=== PATIENT | male | born 1950 | race Caucasian/White ===

== ENCOUNTER 2020-02-13 13:10 | Emergency (ER) | payer MEDICARE, BC ==
--- NOTE | 2020-02-13 13:40 | ED Physician Documentation ---
PD HPI LOWER EXT INJURY - Stated complaint Stated Complaint: L KNEE INJ - Chief complaint Chief Complaint: Trauma Ext - History obtained from History obtained from: Patient - History of Present Illness PD HPI LOW EXT INJURY LOCATION: Left, Knee Type of injury: Fall, Twist Where injury occurred: Home Timing - onset: How many hours ago (16) Timing - details: Abrupt onset Improved by: Rest, Ice Worsened by: Moving, Palpating Associated symptoms: Swelling. No: Weakness, Numbness, Tingling Similar symptoms before: Has not had sx before - Additional information Additional information: 69-year-old male here with left knee pain after stepping in between the spacing of decking and twisting the knee last night. He denies any previous history of injury to this knee but has been unable to bear weight. He does have a mild palpable effusion on the lateral side of the knee. no syncope or LOC. denies pertinent pmh outside of nephrolithiasis Review of Systems Constitutional: reports: Reviewed and negative Eyes: reports: Reviewed and negative Ears: reports: Reviewed and negative Throat: reports: Reviewed and negative Cardiac: reports: Reviewed and negative Skin: reports: Reviewed and negative Musculoskeletal: reports: Joint pain, Joint swelling Neurologic: reports: Reviewed and negative Psychiatric: reports: Reviewed and negative PD PAST MEDICAL HISTORY - Past Medical History Past Medical History: No - Past Surgical History Past Surgical History: No - Allergies Allergies/Adverse Reactions: Allergies Allergy/AdvReac Type Severity Reaction Status Date / Time No Known Drug Allergies Allergy Verified 02/13/20 13:33 - Social History Does the pt smoke?: No Smoking Status: Never smoker Does the pt drink ETOH?: Yes Does the pt have substance abuse?: No - Immunizations Immunizations are current?: Yes - POLST Patient has POLST: No PD ED PE NORMAL - General General: Alert and oriented X 3, No acute distress, Well developed/nourished - HEENT HEENT: Atraumatic - Extremities Extremities: No deformity. No: No tenderness to palpate (mild effusion left lateral knee. No laxity or varus or valgus stress testing. normla flexion/extension. no tenderness at tibial plateau ) Results - Vitals Vitals: Vital Signs - 24 hr 02/13/20 02/13/20 13:29 14:34 Temperature 37.1 C 36.9 C Heart Rate 103 H 82 Respiratory 16 18 Rate Blood Pressure 178/97 H 169/95 H O2 Saturation 95 96 Oxygen O2 Source Room air - Rads (name of study) left knee Radiology: Final report received (no acute fracture dislocation. ) PD MEDICAL DECISION MAKING - ED course Complexity details: reviewed results, re-evaluated patient, considered differential, d/w patient ED course: 69-year-old male presents the emergency department with acute left knee pain when he stepped into deck spacing twisting the knee. He reports a click medially when he extends the knee but has been unable to bear weight. X-ray does not show any obvious fracture. I suspect at this time he likely has internal derangement. Patient will be given an Will wrap and crutches. He is visiting from out of town and he will follow-up with his primary care doctor or orthopedist when he returns home. Departure - Departure Disposition: 01 Home, Self Care Clinical Impression: Left knee sprain Qualifiers: Encounter type: initial encounter Involved ligament of knee: unspecified ligament Qualified Code(s): S83.92XA - Sprain of unspecified site of left knee, initial encounter Condition: Stable Record reviewed to determine appropriate education?: Yes Instructions: ED Sprain Knee Comments: The x-ray of your knee does not show any obvious fracture. As we discussed this most likely is internal derangement or sprain of the ligaments or meniscus. Continue to wear the Will wrap when out of bed. I do recommend that you ice the knee for 10 minutes 2-3 times a day. If your pain and ability to bear weight is not consistently better in 7 to 10 days the knee should be re-x-rayed. You may prefer to follow-up with your primary or orthopedic doctor when you return home.
--- NOTE | 2020-02-13 14:10 | XRAY Report ---
PROCEDURE: Knee 4 View LT INDICATIONS: fall/twist. r/o tibial plateau fx TECHNIQUE: 4 views of the left knee(s) were acquired. COMPARISON: None. FINDINGS: Bones: No fractures or dislocations. No suspicious bony lesions. Prominent patellar spur is noted. Soft tissues: Mild joint effusion. No suspicious soft tissue calcifications. IMPRESSION: Mild effusion. No visualized acute fracture or dislocation. However, occult injury canno t be excluded. Recommend short interval imaging follow-up in 7-10 days as clinically indicated for ad ditional evaluation. Reviewed by: Adri Sher MD on 02/13/2020 2:08 PM PDT Approved by: Adri Sher MD on 02/13/2020 2:08 PM PDT Station ID: [id number]
[2020-02-13 14:34] VITALS: BP 169/95
== END 2020-02-13 14:53 | disposition home or self-care (01) ==
LOC: ED 13:10
DX: S83.92XA Sprain of unspecified site of left knee, initial encounter (principal); X50.1XXA Overexertion from prolonged static or awkward postures, initial encounter; Y93.89 Activity, other specified; Y92.008 Other place in unspecified non-institutional (private) residence as the place of occurrence of the external cause
CPT/HCPCS: 99283